=== PATIENT | male | born 1990 | race African-American/Black ===

== ENCOUNTER → 2020-07-05 | Outpatient (CLI) | payer OTHER ==
[2020-07-05 11:03] LABS: ABSOLUTE NEUTROPHILS 2.5 thou/uL (1.4-8.2); BASOPHILS 0.5 % (0.0-2.0); EOSINOPHILS 3.1 % (0.0-3.0); LYMPHOCYTES 24.8 % (24.0-44.0); MCH 29.1 pg (26.0-34.0); MCHC 32.7 g/dL (28.0-37.0); MONOCYTES 7.6 % (1.0-8.0); PLATELET COUNT 210 thou/uL (150-400); RBC 4.83 mil/uL (4.50-6.00); RDW 13.3 % (10.5-14.5); WBC 3.9 thou/uL (4.0-11.0)
[2020-07-05 11:18] LABS: ALBUMIN 4.1 g/dL (3.4-5.0); CALCIUM 8.8 mg/dL (8.5-10.1); CREATININE 1.1 mg/dL (0.7-1.3); POTASSIUM 3.8 mmol/L (3.5-5.1); TOTAL BILIRUBIN 0.8 mg/dL (0.2-1.0); TOTAL PROTEIN 7.5 g/dL (6.4-8.2)
== END ==
LOC: LAB 10:36
PROVIDERS: ATTEND Nurse Practitioner
DX: F41.8 Other specified anxiety disorders (principal)

== ENCOUNTER 2020-10-06 14:29 | Emergency (ER) | payer OTHER ==
[~2020-10-06] VITALS: Ht 170.2 cm; Wt 59.0 kg
[2020-10-06] MEDS ORDERED: REMERON15 M1 PO (14:37)
[2020-10-06 15:39] LABS: ABSOLUTE NEUTROPHILS 3.2 thou/uL (1.4-8.2); BASOPHILS 0.8 % (0.0-2.0); HEMATOCRIT 40.9 % (42.0-52.0); HEMOGLOBIN 13.5 gm/dL (14.0-18.0); LYMPHOCYTES 23.2 % (24.0-44.0); MCH 29.8 pg (26.0-34.0); MCV 90.3 fL (80.0-100.0); MONOCYTES 7.2 % (1.0-8.0); PLATELET COUNT 206 thou/uL (150-400); POLYS 66.8 % (36.0-66.0); RBC 4.53 mil/uL (4.50-6.00); RDW 13.7 % (10.5-14.5); WBC 4.8 thou/uL (4.0-11.0)
[2020-10-06 15:42] VITALS: BP 136/89
[2020-10-06 15:45] LABS: CALCIUM 8.8 mg/dL (8.5-10.1); CREATININE 0.9 mg/dL (0.7-1.3); POTASSIUM 3.5 mmol/L (3.5-5.1)
[2020-10-06 15:50] LABS: URINE BILIRUBIN NEGATIVE (Negative); URINE BLOOD NEGATIVE (Negative); URINE CLARITY CLEAR; URINE COLOR YELLOW; URINE GLUCOSE-RANDOM* NEGATIVE (Negative); URINE KETONES NEGATIVE (Negative); URINE LEUKOCYTES-REFLEX NEGATIVE (Negative); URINE NITRITE-REFLEX NEGATIVE (Negative); URINE PROTEIN (DIPSTICK) NEGATIVE (Negative); URINE SPECIFIC GRAVITY 1.015 (1.005-1.035)
[2020-10-06 15:51] LABS: ALBUMIN 4.1 g/dL (3.4-5.0); TOTAL BILIRUBIN 0.5 mg/dL (0.2-1.0); TOTAL PROTEIN 7.7 g/dL (6.4-8.2)
== END 2020-10-06 15:42 | disposition home or self-care (01) ==
LOC: ER 14:29
PROVIDERS: Emergency Medicine
DX: R10.31 Right lower quadrant pain (principal); R19.7 Diarrhea, unspecified; Z88.8 Allergy status to other drugs, medicaments and biological substances

== ENCOUNTER → 2020-10-25 | Outpatient (CLI) | payer OTHER ==
[~2020-10-25] VITALS: Ht 170.2 cm; Wt 60.3 kg
[~2020-10-25] MED LIST: ANTACID PO; DEPRESSION MEDICINE PO; FIBER GUMMIES-1 EACH PO; REMERON15 M1 PO; VITAMIN D21250 MCG PO
--- NOTE | 2020-10-27 16:09 | PATH ---
[facility] [address] [place] [address] PATHOLOGY RPT PROCEDURE Name: MANDILATEJOHANA Room #: REG MARIANNA Pawan.R.#: [id number] Admission: 10/25/20 Date of : 89 Discharge: Report #: [id number] Path Case #: [id number] [facility] Accession Number: [id number] . 01 Material submitted: . gastrointestinal site - RANDOM GASTRIC R/O H. PYLORI . 01 Clinical history: . EGD COLONOSCOPY ABD PAIN GERD SELVIN . 02 Diagnosis: Gastric mucosa, random gastric rule out H. pylori, endoscopic biopsy: - Moderate reactive gastropathy. - Negative for intestinal metaplasia or atrophy. - Negative for Helicobacter pylori (properly controlled immunohistochemical stain performed). (IUV/db; 10/27/2020) LBQ 10/27/2020 1248 Local . 02 Electronically signed: . Kathy Logan MD, Pathologist NPI- [id number] . 01 Gross description: . The specimen is submitted in formalin, labeled "Ana Raymond, random gastric biopsy". Received are multiple segments of pale thurman tissue ranging in size from 0.3 to 0.6 cm in maximum dimensions. The specimen is submitted in cassette A1. ([facility]; 10/26/2020) NRI/NRI 10/26/2020 1143 Local . 02 Pathologist provided ICD-10: K31.9 . 02 CPT . 518516, [id number] Specimen Comment: A courtesy copy of this report has been sent to [phone] Specimen Comment: [id number] Specimen Comment: Report sent to / DR ARREGUIN Performed at: [address] [id number] MD Adam Mario MD Phone: [phone] Performed at: [address] [id number] PATHOLOGY RPT PROCEDURE Name: ANA RAYMOND [facility]#: [id number] Admission: 10/25/20 Date of : 89 Discharge: Report #: [id number] Path Case #: [id number] [address] [id number] MD Kathy Logan MD Phone: [phone]
== END ==
LOC: GI 07:13
PROVIDERS: ATTEND Internal Medicine Gastroenterology
DX: R10.84 Generalized abdominal pain (principal); R10.13 Epigastric pain; K31.9 Disease of stomach and duodenum, unspecified; K21.9 Gastro-esophageal reflux disease without esophagitis; F32.9 Major depressive disorder, single episode, unspecified; F41.9 Anxiety disorder, unspecified; F17.210 Nicotine dependence, cigarettes, uncomplicated; Z98.890 Other specified postprocedural states; Z79.899 Other long term (current) drug therapy
CPT/HCPCS: 62110; 62900